=== PATIENT | male | born 1955 | race African-American/Black ===

== ENCOUNTER 2019-02-02 10:17 | Observation (INO) | payer OTHER ==
--- NOTE | 2019-02-02 10:46 | ER Document Report ---
ED General - General Stated Complaint: SYNCOPE Time Seen by Provider: 02/02/19 10:40 Primary Care Provider: STEFANIA LOZADA, ANASTACIA [ALLIED HEALTH PROFESSIONAL] - Follow up as needed Notes: 63-year-old male presents with syncope x2. History of pacer and ICD, history of hypertension but taken off his meds about a month ago because he was hypotensive but has not been diagnosed with hypertension frankly. This morning he bent over to get something and felt very dizzy. He almost fainted when he stood back up. He relaxed and got in the car to go to his primary care. At primary care clinic he was found to be hypotensive and was asked to drive to the ED. During the drive to the ED without prodrome he lost consciousness again. Hypotensive at triage. No chest pain shortness of breath belly pain ripping or tearing pain or vomiting, but had a loose stool this morning and has had nausea vomiting off and on for about a month. Past Medical History - Social History Smoking Status: Former Smoker Family History: None Review of Systems - Review of Systems Notes: REVIEW OF SYSTEMS GEN: Denies fever, chills, weight loss ENT: Denies sore throat, nasal discharge, ear pain EYES: Denies blurry vision, eye pain, discharge CV: syncope RESP: Denies cough, shortness of breath, wheezing GI: Denies abdominal pain, nausea, vomiting, diarrhea MSK: Denies joint pain/swelling, edema, SKIN: Denies rash, skin lesions LYMPH: Denies swollen glands/lymph nodes NEURO: Denies headache, focal weakness or numbness, dizziness PSYCH: Denies depression, suicidal or homicidal ideation PHYSICAL EXAMINATION General: Rigors, appears cold Head: Atraumatic, normocephalic ENT: Mouth normal, oropharynx moist, no exudates or tonsillar enlargement Eyes: Conjunctiva normal, pupils equal, lids normal Neck: No JVD, supple, no guarding CVS: Normal rate, regular rhythm, no murmurs Resp: No resp distress, equal and normal breath sounds bilaterally GI: Nondistended, soft, no tenderness to palpation, no rebound or guarding Ext: No deformities, no edema, normal range of motion in upper and lower ext Back: No CVA or midline TTP Skin: No rash, warm Lymphatic: No lymphadeopathy noted Neuro: Awake, alert. Face symmetric. GCS 15. Physical Exam - Vital signs Vitals: Resp Pulse Ox 21 H 98 02/02/19 10:37 02/02/19 10:37 Course - Re-evaluation Re-evalutation: 02/02/19 10:44 63-year-old male with cardiac problems presents with hypotension and syncope x2 the second time with no prodrome. Concerning for arrhythmia anemia or electrolyte abnormalities. Will hydrate. 02/02/19 13:23 Patient's blood pressure improved with 1 L of fluid. His labs including troponin are negative his pacemaker interrogation shows nothing in the last several days although he did have a nonsustained VT episode in December. I think his Coreg 25 twice a day is probably too much beta-blaise that may be what is causing today's events. Discussed with Dr. Dalila chakraborty to admit to [facility] telemetry. - Vital Signs Vital signs: Temp Pulse Resp BP Pulse Ox 98.6 F 18 109/65 99 02/02/19 10:49 02/02/19 12:43 02/02/19 12:43 02/02/19 12:43 - Laboratory Result Diagrams: 02/02/19 11:23 02/02/19 11:23 Laboratory results interpreted by me: 02/02/19 02/02/19 11:23 11:23 RBC 3.86 L Hgb 12.6 L Hct 37.0 L Monocytes % 14.0 H Sodium 136.4 L Glucose 112 H - Diagnostic Test Radiology reviewed: Image reviewed, Reports reviewed - EKG Interpretation by [place] EKG shows normal: Sinus rhythm Rate: Normal Rhythm: NSR Discharge - Discharge Clinical Impression: Syncope Qualifiers: Syncope type: unspecified Qualified Code(s): R55 - Syncope and collapse Condition: Fair Disposition: ADMITTED OBSERVATION Admitting Provider: Anupam (Hospitalist) Unit Admitted: Telemetry Referrals: STEFANIA LOZADA NP [ALLIED HEALTH PROFESSIONAL] - Follow up as needed
--- NOTE | 2019-02-02 11:18 | RADIOLOGY REPORT (SQ) ---
EXAM DESCRIPTION: CHEST SINGLE VIEW COMPLETED DATE/TIME: 02/02/2019 11:05 am REASON FOR STUDY: AICD COMPARISON: None. EXAM PARAMETERS: NUMBER OF VIEWS: One view. TECHNIQUE: Single frontal radiographic view of the chest acquired. RADIATION DOSE: NA LIMITATIONS: None. FINDINGS: LUNGS AND PLEURA: No opacities, masses or pneumothorax. No pleural effusion. MEDIASTINUM AND HILAR STRUCTURES: No masses. Contour normal. HEART AND VASCULAR STRUCTURES: Heart normal in size. Normal vasculature. BONES: No acute findings. HARDWARE: Left-sided pacer/defibrillator with leads overlying right atrium and right ventricle. Ther e is apparent discontinuity of 1 of the wires at the level of the subclavian vein. No priors availab le for comparison. OTHER: No other significant finding. IMPRESSION: Left-sided cardiac pacer/defibrillator with apparent discontinuity of one of the pacer w ires at the level of the subclavian vein. No priors available for comparison. No other evidence of acute cardiopulmonary process. TECHNICAL DOCUMENTATION: JOB ID: [id number] [employer]- All Rights Reserved Reading location - IP/workstation name: [email or web address]
[2019-02-02 12:13] LABS: ABSOLUTE LYMPHOCYTES (AUTO) 0.9 10^3/uL (0.5-4.7); ABSOLUTE MONOCYTES (AUTO) 0.6 10^3/uL (0.1-1.4); ABSOLUTE NEUT (AUTO) 2.9 10^3/uL (1.7-8.2); BASOPHILS % (AUTO) 0.6 % (0-2); EOSINOPHILS % (AUTO) 0.7 % (0-6); HEMOGLOBIN 12.6 g/dL (13.5-17.0); LYMPHOCYTES % (AUTO) 19.1 % (13-45); MEAN CORPUSCULAR HEMOGLOBIN 32.8 pg (27.0-33.4); MEAN CORPUSCULAR HGB CONC 34.1 g/dL (32.0-36.0); MEAN CORPUSCULAR VOLUME 96 fl (80-97); PLATELET COUNT 163 10^3/uL (150-450); RED BLOOD COUNT 3.86 10^6/uL (4.35-5.55); RED CELL DISTRIBUTION WIDTH 13.2 % (11.5-14.0); SEGMENTED NEUTROPHILS % (AUTO) 65.6 % (42-78); TOTAL CELLS COUNTED % (AUTO) 100 %; WHITE BLOOD COUNT 4.5 10^3/uL (4.0-10.5)
[2019-02-02 12:47] LABS: ANION GAP 10 (5-19); BLOOD UREA NITROGEN 7 mg/dL (7-20); CALCIUM 8.8 mg/dL (8.4-10.2); CARBON DIOXIDE 26 mmol/L (22-30); CHLORIDE 100 mmol/L (98-107); GLUCOSE 112 mg/dL (75-110); POTASSIUM 4.4 mmol/L (3.6-5.0); SODIUM 136.4 mmol/L (137-145)
--- NOTE | 2019-02-02 14:05 | PDOC H&P ---
History of Present Illness Admission Date/PCP: DENIS GUEVARA MD History of Present Illness: GIA TINOCO is a 63 year old black male patient with past medical history of hypertension, hyperlipidemia, diabetes mellitus, COPD, status post AICD placement, presented with chief complaint of lightheadedness and an episode of syncope. Patient reported that he has been traveling to [place] while his son is driving the car when he started to have lightheadedness. Patient found to be hypotensive with blood pressure of 61/40. En route to ER patient has an episode of syncope and incontinence of stool. After he was given a bolus of normal saline patient feels much better. When I seen patient is awake alert and oriented x4. Blood works are unremarkable. His pacemaker interrogation shows nothing in the last several days although he did have an nonsustained V. tach episode in December. His hypotension is most probably due to high-dose of beta- blockers. Patient denies any fever, chills, chest pain or palpitation. He endorses intermittent nausea and vomiting for the last several months. Past Medical History Cardiac Medical History: Reports: Hyperlipidema, Hypertension Pulmonary Medical History: Reports: Chronic Obstructive Pulmonary Disease (COPD) Endocrine Medical History: Reports: Diabetes Mellitus Type 2 Past Surgical History Past Surgical History: Reports: Appendectomy, Orthopedic Surgery Social History Smoking Status: Former Smoker - Advance Directive Resuscitation Status: Full Code Family History Family History: None Parental Family History Reviewed: Yes Children Family History Reviewed: Yes Sibling(s) Family History Reviewed.: Yes Review of Systems Constitutional: ABSENT: chills, fever(s), headache(s), weight gain, weight loss Eyes: ABSENT: visual disturbances Ears: ABSENT: hearing changes Cardiovascular: ABSENT: chest pain, dyspnea on exertion, edema, orthropnea, palpitations Respiratory: ABSENT: cough, hemoptysis Gastrointestinal: PRESENT: nausea, vomiting Genitourinary: ABSENT: dysuria, hematuria Musculoskeletal: ABSENT: joint swelling Integumentary: ABSENT: rash, wounds Neurological: PRESENT: dizziness Psychiatric: ABSENT: anxiety, depression, homidical ideation, suicidal ideation Endocrine: ABSENT: cold intolerance, heat intolerance, polydipsia, polyuria Hematologic/Lymphatic: ABSENT: easy bleeding, easy bruising Physical Exam Vital Signs: Temp Pulse Resp BP Pulse Ox 98.6 F 18 109/65 99 02/02/19 10:49 02/02/19 12:43 02/02/19 12:43 02/02/19 12:43 Intake & Output 02/01/19 02/02/19 02/03/19 06:59 06:59 06:59 Weight 70.76 kg General appearance: PRESENT: no acute distress Head exam: PRESENT: atraumatic, normocephalic Neck exam: ABSENT: carotid bruit, JVD, lymphadenopathy, thyromegaly Respiratory exam: PRESENT: clear to auscultation bonifacio. ABSENT: rales, rhonchi, wheezes Cardiovascular exam: PRESENT: RRR. ABSENT: diastolic murmur, rubs, systolic murmur Pulses: PRESENT: normal dorsalis pedis pul GI/Abdominal exam: PRESENT: normal bowel sounds, soft. ABSENT: distended, guarding, mass, organolmegaly, rebound, tenderness Neurological exam: PRESENT: alert, awake, oriented to time, oriented to situation Results Laboratory Results: 02/02/19 11:23 02/02/19 11:23 02/02/19 02/02/19 02/02/19 10:04 10:04 11:23 WBC Cancelled 4.5 RBC Cancelled 3.86 L Hgb Cancelled 12.6 L Hct Cancelled 37.0 L MCV Cancelled 96 MCH Cancelled 32.8 MCHC Cancelled 34.1 RDW Cancelled 13.2 Plt Count Cancelled 163 Seg Neutrophils % Cancelled 65.6 Lymphocytes % Cancelled 19.1 Monocytes % Cancelled 14.0 H Eosinophils % Cancelled 0.7 Basophils % Cancelled 0.6 Absolute Neutrophils Cancelled 2.9 Absolute Lymphocytes Cancelled 0.9 Absolute Monocytes Cancelled 0.6 Absolute Eosinophils Cancelled 0.0 Absolute Basophils Cancelled 0.0 Sodium Cancelled Potassium Cancelled Chloride Cancelled Carbon Dioxide Cancelled Anion Gap Cancelled BUN Cancelled Creatinine Cancelled Est GFR ( Amer) Cancelled Est GFR (Non-Af Amer) Cancelled Glucose Cancelled Calcium Cancelled 02/02/19 11:23 WBC RBC Hgb Hct MCV MCH MCHC RDW Plt Count Seg Neutrophils % Lymphocytes % Monocytes % Eosinophils % Basophils % Absolute Neutrophils Absolute Lymphocytes Absolute Monocytes Absolute Eosinophils Absolute Basophils Sodium 136.4 L Potassium 4.4 Chloride 100 Carbon Dioxide 26 Anion Gap 10 BUN 7 Creatinine 1.07 Est GFR ( Amer) > 60 Est GFR (Non-Af Amer) > 60 Glucose 112 H Calcium 8.8 02/02/19 02/02/19 10:04 11:23 Troponin I Cancelled < 0.012 Impressions: Chest X-Ray 02/02/19 10:41 IMPRESSION: Left-sided cardiac pacer/defibrillator with apparent discontinuity of one of the pacer wires at the level of the subclavian vein. No priors brenton ilable for comparison. No other evidence of acute cardiopulmonary process. Assessment and Plan - Diagnosis (1) Syncope Qualifiers: Encounter type: initial encounter Is this a current diagnosis for this admission?: Yes Plan: This is most probably due to orthostatic hypotension. It is precipitated by high-dose metoprolol. I will revise his blood pressure medications and adjust accordingly. (2) Hypertension Qualifiers: Hypertension type: essential hypertension Qualified Code(s): I10 - Essential (primary) hypertension Is this a current diagnosis for this admission?: Yes Plan: Patient is not hypotensive. We will hold his antihypertensive medications. (3) Type 2 diabetes mellitus Is this a current diagnosis for this admission?: Yes Plan: We will continue his home medication in the meantime we will put him on sliding scale. (4) COPD (chronic obstructive pulmonary disease) Qualifiers: Emphysema type: unspecified Is this a current diagnosis for this admission?: Yes Plan: I will put him on PRN bronchodilators. (5) Hyperlipidemia Is this a current diagnosis for this admission?: Yes Plan: Continue his home medications.
[2019-02-02] MEDS ORDERED: ONDANSETRON HCL INJ/PF 4 MG/2 ML SDV IV PRN (14:06)
[2019-02-02] MEDS ORDERED: ACETAMINOPHEN 325 MG TABLET PO PRN (14:06)
[2019-02-02] MEDS: ENOXAPARIN SODIUM INJ 40 MG/0.4 ML DISP.SYRIN SUBCUT SCH (15:32)
[2019-02-02] MEDS: NORMAL SALINE 1000 ML 1,000 ML IV PRN ×2 (15:32→23:48)
[2019-02-02] MEDS: DOCUSATE SODIUM 100 MG CAPSULE PO SCH (18:30)
--- NOTE | 2019-02-02 19:41 | EKG REPORT ---
SEVERITY:- OTHERWISE NORMAL ECG - SINUS RHYTHM LEFT AXIS DEVIATION MINIMAL ST ELEVATION, ANTEROLATERAL LEADS : NON DIAGNOSTIC : Confirmed by: Laurel Acosta MD 02-Feb-2019 19:40:32
[2019-02-02] MEDS: FAMOTIDINE 20 MG TABLET PO SCH (21:17)
[2019-02-03 07:22] LABS: ANION GAP 9 (5-19); BLOOD UREA NITROGEN 9 mg/dL (7-20); CALCIUM 8.1 mg/dL (8.4-10.2); CARBON DIOXIDE 24 mmol/L (22-30); CHLORIDE 105 mmol/L (98-107); GLUCOSE 86 mg/dL (75-110); POTASSIUM 3.5 mmol/L (3.6-5.0); SODIUM 137.6 mmol/L (137-145)
[2019-02-03 07:55] VITALS: BP 145/90
[2019-02-03] MEDS: FAMOTIDINE 20 MG TABLET PO SCH (09:07)
[2019-02-03] MEDS: ENOXAPARIN SODIUM INJ 40 MG/0.4 ML DISP.SYRIN SUBCUT SCH (09:09)
[2019-02-03] MEDS: DOCUSATE SODIUM 100 MG CAPSULE PO SCH (09:11)
--- NOTE | 2019-02-03 10:48 | PDOC DISCHARGE SUMMARY ---
General - Admit/Disc Date/PCP Admission Date/Primary Care Provider: 02/02/19 14:03 DENIS GUEVARA MD Discharge Date: 02/03/19 - Discharge Diagnosis (1) Syncope Is this a current diagnosis for this admission?: Yes (2) Hypertension Is this a current diagnosis for this admission?: Yes (3) Type 2 diabetes mellitus Is this a current diagnosis for this admission?: Yes (4) COPD (chronic obstructive pulmonary disease) Is this a current diagnosis for this admission?: Yes (5) Hyperlipidemia Is this a current diagnosis for this admission?: Yes - Additional Information Resuscitation Status: Full Code Home Medications: Carvedilol [Coreg 25 mg Tablet] 25 mg PO Q12 02/02/19 Ergocalciferol (Vitamin D2) [Drisdol 50,000 unit (1.25MG) Capsule] 50,000 unit PO MO 02/02/19 Lisinopril [Zestril] 10 mg PO DAILY 02/02/19 Metformin HCl [Glucophage XR 500 mg Tablet] 1,000 mg PO BID 02/02/19 Naproxen [Naprosyn] 500 mg PO BIDP PRN 02/02/19 Rosuvastatin Calcium [Crestor 20 mg Tablet] 20 mg PO QHS 02/02/19 Umeclidinium Brm/Vilanterol Tr [Anoro Ellipta 62.5-25 Mcg INH] 1 puff IH DAILY 02/02/19 History of Present Illness History of Present Illness: GIA TINOCO is a 63 year old black male patient with past medical history of hypertension, hyperlipidemia, diabetes mellitus, COPD, status post AICD placement, presented with chief complaint of lightheadedness and an episode of syncope. Patient reported that he has been traveling to [place] while his son is driving the car when he started to have lightheadedness. Patient found to be hypotensive with blood pressure of 61/40. En route to ER patient has an episode of syncope and incontinence of stool. After he was given a bolus of normal saline patient feels much better. When I seen patient is awake alert and oriented x4. Blood works are unremarkable. His pacemaker interrogation shows nothing in the last several days although he did have an nonsustained V. tach episode in December. His hypotension is most probably due to high-dose of beta- blockers. Patient denies any fever, chills, chest pain or palpitation. He endorses intermittent nausea and vomiting for the last several months. Hospital Course Hospital Course: GIA TINOCO is a 63 year old black male patient with past medical history of hypertension, hyperlipidemia, diabetes mellitus, COPD, status post AICD placement, presented with chief complaint of lightheadedness and an episode of syncope. Patient has been hydrated aggressively. His blood pressure medications has been revised. His blood pressure remained stable and patient is stable enough to go home today. Patient advised that to visit his primary care physician. Physical Exam Vital Signs: Temp Pulse Resp BP Pulse Ox 98.2 F 59 L 17 145/90 H 98 02/03/19 07:53 02/03/19 07:53 02/03/19 07:53 02/03/19 07:53 02/03/19 07:53 Intake & Output 02/02/19 02/03/19 02/04/19 06:59 06:59 06:59 Intake Total 1240 Balance 1240 Weight 70.7 kg General appearance: PRESENT: no acute distress, well-developed, well-nourished Head exam: PRESENT: atraumatic, normocephalic Eye exam: PRESENT: conjunctiva pink, EOMI, PERRLA. ABSENT: scleral icterus Ear exam: PRESENT: normal external ear exam Mouth exam: PRESENT: moist, tongue midline Neck exam: ABSENT: carotid bruit, JVD, lymphadenopathy, thyromegaly Respiratory exam: PRESENT: clear to auscultation bonifacio. ABSENT: rales, rhonchi, wheezes Cardiovascular exam: PRESENT: RRR. ABSENT: diastolic murmur, rubs, systolic murmur Pulses: PRESENT: normal dorsalis pedis pul Vascular exam: PRESENT: normal capillary refill GI/Abdominal exam: PRESENT: normal bowel sounds, soft. ABSENT: distended, guarding, mass, organolmegaly, rebound, tenderness Rectal exam: PRESENT: deferred Extremities exam: PRESENT: full ROM. ABSENT: calf tenderness, clubbing, pedal edema Neurological exam: PRESENT: alert, awake, oriented to person, oriented to place, oriented to time, oriented to situation, CN II-XII grossly intact. ABSENT: motor sensory deficit Psychiatric exam: PRESENT: appropriate affect, normal mood. ABSENT: homicidal ideation, suicidal ideation Skin exam: PRESENT: dry, intact, warm. ABSENT: cyanosis, rash Results Laboratory Results: 02/02/19 11:23 02/03/19 06:00 02/02/19 02/02/19 02/02/19 10:04 10:04 11:23 WBC Cancelled 4.5 RBC Cancelled 3.86 L Hgb Cancelled 12.6 L Hct Cancelled 37.0 L MCV Cancelled 96 MCH Cancelled 32.8 MCHC Cancelled 34.1 RDW Cancelled 13.2 Plt Count Cancelled 163 Seg Neutrophils % Cancelled 65.6 Lymphocytes % Cancelled 19.1 Monocytes % Cancelled 14.0 H Eosinophils % Cancelled 0.7 Basophils % Cancelled 0.6 Absolute Neutrophils Cancelled 2.9 Absolute Lymphocytes Cancelled 0.9 Absolute Monocytes Cancelled 0.6 Absolute Eosinophils Cancelled 0.0 Absolute Basophils Cancelled 0.0 Sodium Cancelled Potassium Cancelled Chloride Cancelled Carbon Dioxide Cancelled Anion Gap Cancelled BUN Cancelled Creatinine Cancelled Est GFR ( Amer) Cancelled Est GFR (Non-Af Amer) Cancelled Glucose Cancelled Calcium Cancelled 02/02/19 02/03/19 11:23 06:00 WBC RBC Hgb Hct MCV MCH MCHC RDW Plt Count Seg Neutrophils % Lymphocytes % Monocytes % Eosinophils % Basophils % Absolute Neutrophils Absolute Lymphocytes Absolute Monocytes Absolute Eosinophils Absolute Basophils Sodium 136.4 L 137.6 Potassium 4.4 3.5 L Chloride 100 105 Carbon Dioxide 26 24 Anion Gap 10 9 BUN 7 9 Creatinine 1.07 0.97 Est GFR ( Amer) > 60 > 60 Est GFR (Non-Af Amer) > 60 > 60 Glucose 112 H 86 Calcium 8.8 8.1 L 02/02/19 02/02/19 10:04 11:23 Troponin I Cancelled < 0.012 Impressions: Chest X-Ray 02/02/19 10:41 IMPRESSION: Left-sided cardiac pacer/defibrillator with apparent discontinuity of one of the pacer wires at the level of the subclavian vein. No priors availa ble for comparison. No other evidence of acute cardiopulmonary process. Qualifiers - * PATIENT BEING DISCHARGED WITH ANY OF THE FOLLOWING DIAGNOSIS: No Acute Heart Failure Is this a Heart Failure Patient?: No
== END 2019-02-03 13:14 | disposition home or self-care (01) ==
LOC: ER 10:17 → EH 14:03 → 4N 20:31
PROVIDERS: ADMIT Internal Medicine; ATTEND Internal Medicine
DX: R55 Syncope and collapse (principal); I10 Essential (primary) hypertension; E11.9 Type 2 diabetes mellitus without complications; J44.9 Chronic obstructive pulmonary disease, unspecified; E78.5 Hyperlipidemia, unspecified; Z79.899 Other long term (current) drug therapy; Z87.891 Personal history of nicotine dependence; Z95.810 Presence of automatic (implantable) cardiac defibrillator
CPT/HCPCS: 93005; 99285; 96372; 96360; 96361; 36415 ×2; 82962; 85025; 80048 ×2; 84484; 83036; 71045; 93010; G0378 ×3; J1650 ×2; J7030

== ENCOUNTER 2019-03-20 20:19 | Emergency (ER) | payer OTHER ==
--- NOTE | 2019-03-20 21:46 | RADIOLOGY REPORT (SQ) ---
EXAM DESCRIPTION: XR TIBIA FIBULA 2 VIEWS COMPLETED DATE/TME: 03/20/2019 21:12 CLINICAL HISTORY: 63 years, Male, dog bite COMPARISON: None. NUMBER OF VIEWS: 4 TECHNIQUE: 4 view right tibia fibula LIMITATIONS: None. FINDINGS: Negative for acute fracture or dislocation. Well-corticated ossific densities near both the medial and lateral malleoli consistent with sequelae of old trauma. Soft tissue injury along the medial proximal leg with no radiopaque foreign body. IMPRESSION: Proximal soft tissue injury. No acute osseous abnormality copyright 2010 [employer]- All Rights Reserved
[2019-03-21] MEDS ORDERED: LIDOCAINE 1%/EPINEPHRINE INJ 20 ML VIAL INJ ONE (00:11)
--- NOTE | 2019-03-21 00:16 | ER Document Report ---
ED General - General Chief Complaint: Dog Bite Stated Complaint: DOG BITE Time Seen by Provider: 03/21/19 00:06 Primary Care Provider: DENIS GUEVARA MD [Primary Care Provider] - Follow up in 3-5 days Notes: Patient is a 63-year-old male that presents to the emergency department for chief complaint of dog bite to the right leg. Patient reports that around 5 PM today he was breaking profile between his own dogs, and 1 of them bit him in the right leg, there is a [place], he states he is up-to-date with the rabies vaccinations, and the patient states that he personally is up-to-date with tetanus. He has some pain in his leg, he is more concerned about the deep laceration, he currently rates his pain is a 2 out of 10 and describes it as an aching sensation and somewhat throbbing in his right leg. Denies any other injuries, denies falling. Past Medical History: Diabetes mellitus, CHF, hypertension Past Surgical History: AICD placement Social History: Admits to occasional alcohol use, denies tobacco or illicit drug use. Family History: Reviewed and noncontributory for presenting illness Allergies: Reviewed, see documented allergy list. REVIEW OF SYSTEMS: Other than noted above, the 12 point review of systems was reviewed with the patient and were negative, all pertinent findings are included in the HPI. PHYSICAL EXAMINATION: Vital signs reviewed, nursing noted reviewed. GENERAL: Well-appearing, well-nourished and in no acute distress. HEAD: Atraumatic, normocephalic. EYES: Eyes appear normal, extraocular movements intact, sclera anicteric, conjunctiva are normal. ENT: nares patent, oropharynx clear without exudates. Moist mucous membranes. NECK: Normal range of motion, supple without lymphadenopathy LUNGS: Breath sounds clear to auscultation bilaterally and equal. No wheezes rales or rhonchi. HEART: Regular rate and rhythm without murmurs ABDOMEN: Soft, nontender, normoactive bowel sounds. No rebound, guarding, or rigidity. No masses appreciated. EXTREMITIES: The right lower extremity, has a 3 cm chevron shaped deep laceration, anteriorly of the right lower leg, there is a small superficial skin tear, more laterally. Neurovascular patient is intact distally, no other injuries noted, the rest the patient's extremity exam is grossly unremarkable. NEUROLOGICAL: No focal neurological deficits. Moves all extremities spontaneously Motor and sensory grossly intact on exam. PSYCH: Normal mood, normal affect. SKIN: Warm, Dry, normal turgor TRAVEL OUTSIDE OF THE [place] IN LAST 30 DAYS: No - Related Data Allergies/Adverse Reactions: No Known Allergies Allergy (Unverified 02/02/19 14:56) Past Medical History - Social History Smoking Status: Former Smoker Frequency of alcohol use: Rare Drug Abuse: None Family History: None Patient has suicidal ideation: No Patient has homicidal ideation: No - Past Medical History Cardiac Medical History: Reports: Hx Hypercholesterolemia, Hx Hypertension Pulmonary Medical History: Reports: Hx COPD Endocrine Medical History: Reports: Hx Diabetes Mellitus Type 2 Renal/ Medical History: Denies: Hx Peritoneal Dialysis Psychiatric Medical History: Denies: Hx Depression Past Surgical History: Reports: Hx Appendectomy, Hx Cardiac Surgery - Defibrillator placed, Hx Orthopedic Surgery Physical Exam - Vital signs Vitals: Temp Pulse Resp BP Pulse Ox 98.5 F 68 18 142/73 H 98 03/20/19 21:00 03/20/19 21:00 03/20/19 21:00 03/20/19 21:00 03/20/19 21:00 Course - Re-evaluation Re-evalutation: Patient seen and examined vital signs reviewed. Patient was evaluated and treated as appropriate for the patient's presenting symptoms and complaint, with consideration of any critical or life threatening conditions that may be associated with their obtained history and exam as noted above. Patient was treated with suture repair as described, patient's wound was gaping, and was loosely approximated, irrigated extensively prior to approximating the laceration. Patient reported being up-to-date with his tetanus vaccination, given a dose of Augmentin. The patient was re-evaluated and was stable, tolerated procedure well Evaluation was most consistent with dog bite, with deep laceration, patient will be prescribed Augmentin, and advised to follow-up in 8 to 10 days to have his sutures removed. Plan of care was discussed with the patient at this point, after careful consideration I feel that that patient can be discharged from the emergency department, the patient was educated treatments and reasons to return to the emergency department based on their presumed diagnosis as noted above, they were advised to followup with a primary care physician in 2-3 days. Patient was agreeable to plan of care. *Note is created using voice recognition software and may contain spelling, syntax or grammatical errors. Tibia/Fibula X-Ray 03/20/19 21:12 IMPRESSION: Proximal soft tissue injury. No acute osseous abnormality copyright 2011 [employer]- All Rights Reserved - Vital Signs Vital signs: Temp Pulse Resp BP Pulse Ox 98.4 F 67 16 143/74 H 100 03/21/19 01:22 03/21/19 01:22 03/21/19 01:22 03/21/19 01:22 03/21/19 01:22 Procedures - Laceration/Wound Repair Right Lower Leg Wound length (cm): 3 Wound's Depth, Shape: Other - into subcuteous tissues Laceration pre-procedure: Sterile PPE donned, Sterile drapes applied, Shur-Clens applied Anesthetic type: 1% Lidocaine w/epi Volume Anesthetic (mLs): 3 Wound explored: Clean Irrigated w/ Saline (mLs): 250 Wound Repaired With: Sutures Suture Size/Type: 4:0, Nylon Number of Sutures: 3 Layer Closure?: No Post-procedure wound care: Sterile dressing applied Complications: No Discharge - Discharge Clinical Impression: Leg laceration Qualifiers: Encounter type: initial encounter Laterality: right Qualified Code(s): S81.811A - Laceration without foreign body, right lower leg, initial encounter Dog bite Qualifiers: Encounter type: initial encounter Qualified Code(s): W54.0XXA - Bitten by dog, initial encounter Condition: Stable Disposition: HOME, SELF-CARE Instructions: Laceration Care ([facility]), Prophylactic Antibiotic ([facility]) Additional Instructions: Please keep your wound clean and dry, you may wash with soap and water then pat dry, may use a small amount of blood, but is designed to be open, if you notice signs of infection such as pus drainage, redness streaking up your leg, please return to the emergency department immediately, please take the prescribed antibiotic, and return in 8 to 10 days to have your sutures removed. Prescriptions: Amox Tr/Potassium Clavulanate [Augmentin 875-125 Tablet] 1 tab PO BID 7 Days #14 tablet Referrals: DENIS GUEVARA MD [Primary Care Provider] - Follow up in 3-5 days
[2019-03-21] MEDS ORDERED: AMOXICILLIN TR/POT CLAVULANATE 500-125 MG TAB PO ONE (01:14)
[2019-03-21 01:28] VITALS: BP 143/74
== END 2019-03-21 01:27 | disposition home or self-care (01) ==
LOC: ER 20:19
DX: S81.851A Open bite, right lower leg, initial encounter (principal); W54.0XXA Bitten by dog, initial encounter; E78.00 Pure hypercholesterolemia, unspecified; I10 Essential (primary) hypertension; J44.9 Chronic obstructive pulmonary disease, unspecified; E11.9 Type 2 diabetes mellitus without complications; Z95.810 Presence of automatic (implantable) cardiac defibrillator
CPT/HCPCS: 99283; 82962; 73590; 12002; J3490

== ENCOUNTER 2020-09-19 18:59 | Emergency (ER) | payer OTHER, MEDICARE ==
--- NOTE | 2020-09-19 20:32 | ER Document Report ---
ED Syncope and Near Syncope - General Chief Complaint: Altered Mental Status Stated Complaint: POSSIBLE SYNCOPE Time Seen by Provider: 09/19/20 20:13 Primary Care Provider: DENIS GUEVARA MD [Primary Care Provider] - Follow up as needed TRAVEL OUTSIDE OF THE [place] IN LAST 30 DAYS: No - HPI Notes: Patient is a 65-year-old male with a history of COPD, DM, HTN, and pacemaker who presents with lightheadedness for the past week. Patient was found on the floor earlier this evening by his son. He was down for an unknown amount of time. Patient states that he felt lightheaded and had to lay down on the ground but denies any syncope or fall. He states his symptoms are exacerbated when he stands up. He denies hitting his head or any loss of consciousness. Patient reports a decreased appetite for the past week. Patient denies chest pain, shortness of breath, headache, blurred vision, abdominal pain, nausea, vomiting, and diarrhea. - Related Data Allergies/Adverse Reactions: No Known Allergies Allergy (Unverified 02/02/19 14:56) Past Medical History - General Information source: Patient - Social History Smoking Status: Former Smoker Frequency of alcohol use: Occasional Drug Abuse: None Family History: None - Past Medical History Cardiac Medical History: Reports: Hx Heart Attack, Hx Hypercholesterolemia, Hx Hypertension Pulmonary Medical History: Reports: Hx COPD Endocrine Medical History: Reports: Hx Diabetes Mellitus Type 2 Renal/ Medical History: Denies: Hx Peritoneal Dialysis Psychiatric Medical History: Denies: Hx Depression Past Surgical History: Reports: Hx Appendectomy, Hx Cardiac Surgery - Defibrillator placed, Hx Orthopedic Surgery Review of Systems - Review of Systems Constitutional: No symptoms reported EENT: No symptoms reported Cardiovascular: See HPI Respiratory: No symptoms reported Gastrointestinal: No symptoms reported Genitourinary: No symptoms reported Male Genitourinary: No symptoms reported Musculoskeletal: No symptoms reported Skin: No symptoms reported Hematologic/Lymphatic: No symptoms reported Neurological/Psychological: No symptoms reported Physical Exam - Vital signs Vitals: Resp Pulse Ox 18 99 09/19/20 19:02 09/19/20 19:02 - Notes Notes: PHYSICAL EXAMINATION: VITALS: Vitals reviewed and within normal limits. GENERAL: Well-appearing, well-nourished and in no acute distress. HEAD: Atraumatic, normocephalic. EYES: Pupils equal, round, and reactive to light, extraocular movements intact, sclera anicteric, conjunctiva are normal. ENT: Nares patent. Moist mucous membranes. Oropharynx clear without exudates. NECK: Normal range of motion, supple without lymphadenopathy. LUNGS: Breath sounds clear to auscultation bilaterally and equal. No wheezes, rales, or rhonchi. HEART: Regular, rate, and rhythm without murmurs. ABDOMEN: Soft, nontender, normoactive bowel sounds. No guarding, no rebound. No masses appreciated. EXTREMITIES: Normal range of motion, no pitting or edema. No cyanosis. NEUROLOGICAL: No focal neurological deficits. Moves all extremities spontaneously and on command. Face symmetric. Finger to nose testing normal. Pronator drift normal. PSYCH: Normal mood, normal affect. SKIN: Warm, Dry, normal turgor, no rashes or lesions noted. Course - Re-evaluation Re-evalutation: Patient is a 65-year-old male with history of COPD, DM, HTN, and pacemaker who presents with lightheadedness for the past week. Patient was found down on the ground by his son, the patient denies syncope and states that he became lightheaded and had to lay down when his son walked in. Patient reports a decreased appetite and son states patient has been drinking beer but not eating much. Vital signs are within normal limits. Physical exam is unremarkable with no concerning findings. CBC shows a mildly low hemoglobin of 11.4. CMP shows a mildly low sodium of 133.9. UA shows elevated protein of 30, elevated ketones of 80, with a specific gravity of 1.027. UDS is positive for cocaine and marijuana. CT of the head is negative. Chest x-ray is negative as well. Patient given 1 L of IVF here in the ED. Based on presentation and work-up, patient's symptoms are consistent with dehydration. 09/20/20 00:06 Orthostatics done: supine - BP 137/79, HR 83, O2 Sat 100%, sitting - BP 140/87, HR 94, O2 Sat 100%, standing - BP 132/69, HR 106, O2 Sat 100%. Per PCT, patient unsteady upon standing. 2nd liter of fluids ordered. 09/20/20 01:40 Patient's blood pressure continues to improve after 2 L of fluid. We will reassess the patient's stability while standing to ensure he is safe for discharge home. 09/20/20 01:48 PCT helped the patient stand once more and he was much more s table after the 2nd liter of fluids. Patient will be discharged home with strict instructions to increase oral intake. Return precautions and follow up instructions. Patient understands and is in agreement with the plan. - Vital Signs Vital signs: Temp Pulse Resp BP Pulse Ox 98.7 F 79 19 132/69 H 100 09/20/20 02:56 09/20/20 02:56 09/20/20 02:56 09/19/20 22:43 09/20/20 02:56 - Laboratory Results Result Diagrams: 09/19/20 20:29 09/19/20 20:29 Laboratory Results Interpreted: 09/19/20 09/19/20 09/19/20 20:29 20:29 20:56 RBC 3.47 L Hgb 11.4 L Hct 32.8 L Sodium 133.9 L Creatine Kinase 43 L Albumin 3.2 L Urine Protein 30 H Urine Ketones 80 H Urine Urobilinogen 2.0 H Critical Laboratory Results Reviewed: No Critical Results - Radiology Results Critical Radiology Results Reviewed: No Critical Results Discharge - Discharge Clinical Impression: Lightheadedness, Dehydration Condition: Stable Disposition: HOME, SELF-CARE Additional Instructions: Please be sure to drink plenty of fluids/eat food and limit your alcohol/beer intake. Follow up with your primary care provider in the next coming week. Please return to the emergency department if you pass out, developed diffuse muscle cramping, have persistent vomiting, or have any other symptoms that are worrisome to you. Referrals: DENIS GUEVARA MD [Primary Care Provider] - Follow up as needed
[2020-09-19 21:21] LABS: ABSOLUTE EOSINOPHILS # (AUTO) 0.1 10^3/uL (0.0-0.6); ABSOLUTE LYMPHOCYTES (AUTO) 1.1 10^3/uL (0.5-4.7); ABSOLUTE MONOCYTES (AUTO) 0.5 10^3/uL (0.1-1.4); ABSOLUTE NEUT (AUTO) 4.7 10^3/uL (1.7-8.2); BASOPHILS % (AUTO) 0.6 % (0-2); HEMATOCRIT 32.8 % (37.9-51.0); HEMOGLOBIN 11.4 g/dL (13.5-17.0); LYMPHOCYTES % (AUTO) 17.1 % (13-45); MEAN CORPUSCULAR HEMOGLOBIN 32.7 pg (27.0-33.4); MEAN CORPUSCULAR HGB CONC 34.6 g/dL (32.0-36.0); MEAN CORPUSCULAR VOLUME 95 fl (80-97); MONOCYTES % (AUTO) 8.1 % (3-13); PLATELET COUNT 169 10^3/uL (150-450); RED BLOOD COUNT 3.47 10^6/uL (4.35-5.55); SEGMENTED NEUTROPHILS % (AUTO) 73.2 % (42-78); TOTAL CELLS COUNTED % (AUTO) 100 %; WHITE BLOOD COUNT 6.4 10^3/uL (4.0-10.5)
[2020-09-19 21:43] LABS: ALBUMIN 3.2 g/dL (3.5-5.0); ALCOHOL 18 mg/dL (NONE DETECTED); ALKALINE PHOSPHATASE 68 U/L (38-126); ANION GAP 13 (5-19); ASPARTATE AMINO TRANSFERASE 42 U/L (17-59); BILIRUBIN,DIRECT 0.3 mg/dL (0.0-0.4); BILIRUBIN,TOTAL 0.7 mg/dL (0.2-1.3); BLOOD UREA NITROGEN 10 mg/dL (7-20); CALCIUM 8.7 mg/dL (8.4-10.2); CARBON DIOXIDE 23 mmol/L (22-30); CHLORIDE 98 mmol/L (98-107); CREATINE KINASE 43 U/L (55-170); GLUCOSE 105 mg/dL (75-110); POTASSIUM 4.8 mmol/L (3.6-5.0); TOTAL PROTEIN 6.6 g/dL (6.3-8.2)
--- NOTE | 2020-09-19 21:47 | RADIOLOGY REPORT (SQ) ---
EXAM DESCRIPTION: XR CHEST 1 VIEW COMPLETED DATE/TME: 09/19/2020 21:22 CLINICAL HISTORY: 65 years, Male, altered mental status COMPARISON: 02/02/2019 NUMBER OF VIEWS: One TECHNIQUE: AP view the chest LIMITATIONS: None. FINDINGS: The lungs are clear. Heart is normal in size. No pneumothorax or pleural effusion. Left chest wall pacemaker. Bones are unremarkable. IMPRESSION: No acute cardiopulmonary abnormality copyright 2010 [employer]- All Rights Reserved
[2020-09-19 21:55] LABS: APPEARANCE,URINE CLEAR; BILIRUBIN,URINE NEGATIVE (NEGATIVE); COLOR,URINE YELLOW; GLUCOSE, URINE NEGATIVE (NEGATIVE); KETONES,URINE 80 mg/dL (NEGATIVE); LEUKOCYTE ESTERASE,URINE NEGATIVE (NEGATIVE); NITRITE,URINE NEGATIVE (NEGATIVE); PROTEIN,URINE 30 mg/dL (NEGATIVE); URINE SPECIFIC GRAVITY 1.027
[2020-09-19 22:11] LABS: URINE AMPHETAMINES SCREEN NEGATIVE; URINE BARBITURATES SCREEN NEGATIVE; URINE BENZODIAZEPINES SCREEN NEGATIVE; URINE METHADONE SCREEN NEGATIVE; URINE PHENCYCLIDINE SCREEN NEGATIVE
[2020-09-19 22:12] LABS: URINE COCAINE SCREEN UNCONFIRMED POSITIVE; URINE MARIJUANA (THC) SCREEN UNCONFIRMED POSITIVE
--- NOTE | 2020-09-19 22:16 | RADIOLOGY REPORT (SQ) ---
EXAM DESCRIPTION: CT HEAD WITHOUT IV CONTRAST COMPLETED DATE/TME: 09/19/2020 21:59 CLINICAL HISTORY: 65 years, Male, altered mental status COMPARISON: None. TECHNIQUE: 199 Images stored on PACS. All CT scanners at this facility use dose modulation, iterative reconstruction, and/or weight based dosing when appropriate to reduce radiation dose to as low as reasonably achievable (ALARA). [facility]: Dose Right [facility]: CareDose [facility]: Dose Right [facility]: Teradose 4D [facility]: [employer] LIMITATIONS: None. FINDINGS: The globes are intact. The paranasal sinuses and mastoid air cells are well aerated. No displaced or depressed skull fracture. No acute intracranial hemorrhage. CT is limited for evaluation of acute infarct. No CT evidence for large or territorial acute infarct. No mass or midline shift. Craniotomy defects in the right and left paramedian occipital regions. Mild diffuse atrophy. IMPRESSION: No acute intracranial abnormality TECHNICAL DOCUMENTATION: Quality ID # 436: Final reports with documentation of one or more dose reduction techniques (e.g., Automated exposure control, adjustment of the mA and/or kV according to patient size, use of iterative reconstruction technique) copyright 2010 [employer]- All Rights Reserved
[2020-09-20] MEDS ORDERED: NORMAL SALINE 1000 ML 1,000 ML IV ONE (00:04)
[2020-09-20 00:09] VITALS: BP 132/69
--- NOTE | 2020-09-20 09:56 | EKG REPORT ---
SEVERITY:- OTHERWISE NORMAL ECG - SINUS RHYTHM LEFT AXIS DEVIATION : Confirmed by: Prosper Pisano MD 20-Sep-2020 09:55:19
== END 2020-09-20 02:58 | disposition home or self-care (01) ==
LOC: ER 18:59
DX: E86.0 Dehydration (principal); R42 Dizziness and giddiness; R41.82 Altered mental status, unspecified; J44.9 Chronic obstructive pulmonary disease, unspecified; E11.9 Type 2 diabetes mellitus without complications; I10 Essential (primary) hypertension; E78.00 Pure hypercholesterolemia, unspecified; Z95.0 Presence of cardiac pacemaker; I25.2 Old myocardial infarction
CPT/HCPCS: 93005; 99285; 96360; 36415; 80307 ×2; 82550; 85025; 80053; 81001; 84484; 71045; 70450; 93010; J7030

== ENCOUNTER 2020-10-02 15:26 | Observation (INO) | payer OTHER, MEDICARE ==
--- NOTE | 2020-10-02 17:54 | ER Document Report ---
ED Medical Screen (RME) - General Chief Complaint: Weakness Stated Complaint: PASSING OUT Time Seen by Provider: 10/02/20 17:44 Primary Care Provider: DENIS GUEVARA MD [Primary Care Provider] - Follow up as needed Mode of Arrival: Wheelchair Information source: Relative Notes: HPI; 65-year-old male was brought to emergency room by family with concerns for worsening confusion that has been getting progressively worse for the past 3 weeks. States he did have a fall at home yesterday and hitting his head on the floor. Unwitnessed fall unknown loss of consciousness. States has been a heavy alcohol user for 50 years quit 10 days ago after being told by his primary care physician that he needed to stop drinking. No previous history of dementia or Alzheimer's. No nausea, no vomiting. PE: Patient is alert oriented to name only. Patient offers no complaints. Lungs: Clear to auscultation without rales, rhonchi, wheezes. Heart: Regular rate rhythm without murmurs, rubs, gallops. I have greeted and performed a rapid initial assessment of this patient. A comprehensive ED assessment and evaluation of the patient, analysis of test results and completion of the medical decision making process will be conducted by additional ED providers. I have specifically instructed the patient or family members with the patient to immediately return to any nursing staff should anything change in the patient's condition or with their chief complaint. TRAVEL OUTSIDE OF THE [place] IN LAST 30 DAYS: No - Related Data Allergies/Adverse Reactions: Penicillins Allergy (Verified 10/02/20 17:41) Past Medical History - Past Medical History Cardiac Medical History: Reports: Hx Heart Attack, Hx Hypercholesterolemia, Hx Hypertension Pulmonary Medical History: Reports: Hx COPD Endocrine Medical History: Reports: Hx Diabetes Mellitus Type 2 Renal/ Medical History: Denies: Hx Peritoneal Dialysis Psychiatric Medical History: Denies: Hx Depression Past Surgical History: Reports: Hx Appendectomy, Hx Cardiac Surgery - Defibrillator placed, Hx Orthopedic Surgery Physical Exam - Vital signs Vitals: Temp Pulse Resp BP Pulse Ox 97.6 F 70 16 109/79 98 10/02/20 15:33 10/02/20 15:33 10/02/20 15:33 10/02/20 15:33 10/02/20 15:33 Course - Vital Signs Vital signs: Temp Pulse Resp BP Pulse Ox 97.6 F 70 16 109/79 98 10/02/20 15:33 10/02/20 15:33 10/02/20 15:33 10/02/20 15:33 10/02/20 15:33 Doctor's Discharge - Discharge Referrals: DENIS GUEVARA MD [Primary Care Provider] - Follow up as needed
--- NOTE | 2020-10-02 18:35 | RADIOLOGY REPORT (SQ) ---
EXAM DESCRIPTION: CT HEAD WITHOUT IMAGES COMPLETED DATE/TIME: 10/02/2020 6:25 pm REASON FOR STUDY: fall/head injury COMPARISON: 09/19/2020 TECHNIQUE: Axial images acquired through the brain without intravenous contrast. Images reviewed wi th bone, brain and subdural windows. Additional sagittal and coronal reconstructions were generated. Images stored on PACS. All CT scanners at this facility use dose modulation, iterative reconstruction, and/or weight based d osing when appropriate to reduce radiation dose to as low as reasonably achievable (ALARA). [facility]: Dose Right [facility]: CareDose [facility]: Dose Right [facility]: Teradose 4D [facility]: Smart [id number] RADIATION DOSE: CT Rad equipment meets quality standard of care and radiation dose reduction techniq ues were employed. CTDIvol: 48.8 mGy. DLP: 909 mGy-cm. mGy. LIMITATIONS: None. FINDINGS: VENTRICLES: Prominent ventricles secondary to involutional atrophy. CEREBRUM: Cortical atrophy. No masses. No hemorrhage. No midline shift. No evidence for acute inf arction. Areas of low density in the white matter most likely chronic small vessel ischemic changes. CEREBELLUM: No masses. No hemorrhage. No alteration of density. No evidence for acute infarction. EXTRAAXIAL SPACES: No fluid collections. No masses. ORBITS AND GLOBE: No intra- or extraconal masses. Normal contour of globe without masses. CALVARIUM: Craniotomy defects are seen in the parietal region on each side of midline. PARANASAL SINUSES: No fluid or mucosal thickening. SOFT TISSUES: No mass or hematoma. OTHER: No other significant finding. IMPRESSION: Involutional changes with chronic microvascular ischemia. No acute intracranial imaging findings. EVIDENCE OF ACUTE STROKE: NO. COMMENT: Quality ID # 436: Final reports with documentation of one or more dose reduction techniques (e.g., Automated exposure control, adjustment of the mA and/or kV according to patient size, use of iterative reconstruction technique) TECHNICAL DOCUMENTATION: JOB ID: [id number] 2010 [employer]- All Rights Reserved Reading location - IP/workstation name: [email or web address]
--- NOTE | 2020-10-02 18:37 | RADIOLOGY REPORT (SQ) ---
EXAM DESCRIPTION: CT CERVICAL SPINE WITHOUT IMAGES COMPLETED DATE/TIME: 10/02/2020 6:25 pm REASON FOR STUDY: fall injury COMPARISON: None. TECHNIQUE: Axial images acquired through the cervical spine without intravenous contrast. Images re viewed with lung, soft tissue and bone windows. Reconstructed coronal and sagittal MPR images review ed. Images stored on PACS. All CT scanners at this facility use dose modulation, iterative reconstruction, and/or weight based d osing when appropriate to reduce radiation dose to as low as reasonably achievable (ALARA). [facility]: Dose Right [facility]: CareDose [facility]: Dose Right [facility]: Teradose 4D [facility]: Smart [employer]zer RADIATION DOSE: CT Rad equipment meets quality standard of care and radiation dose reduction techniq ues were employed. CTDIvol: 17.4 mGy. DLP: 430 mGy-cm. mGy. LIMITATIONS: None. FINDINGS: ALIGNMENT: Anatomic. MINERALIZATION: Normal. VERTEBRAL BODIES: No fractures or dislocation. DISCS: Disc spaces are narrowed from C5-C7 with marginal osteophytes. FACETS, LATERAL MASSES, POSTERIOR ELEMENTS: No fractures. No dislocation. No acute findings. HARDWARE: None in the spine. VISUALIZED RIBS: No fractures. LUNG APICES AND SOFT TISSUES: No significant or acute findings. OTHER: No other significant finding. IMPRESSION: Degenerative disc disease and spondylosis. No acute findings. TECHNICAL DOCUMENTATION: JOB ID: [id number] Quality ID # 436: Final reports with documentation of one or more dose reduction techniques (e.g., Au tomated exposure control, adjustment of the mA and/or kV according to patient size, use of iterative reconstruction technique) 2010 [employer]- All Rights Reserved Reading location - IP/workstation name: [email or web address]
[2020-10-02 19:59] LABS: ABSOLUTE EOSINOPHILS # (AUTO) 0.2 10^3/uL (0.0-0.6); ABSOLUTE LYMPHOCYTES (AUTO) 1.7 10^3/uL (0.5-4.7); ABSOLUTE MONOCYTES (AUTO) 0.7 10^3/uL (0.1-1.4); ABSOLUTE NEUT (AUTO) 3.8 10^3/uL (1.7-8.2); ALBUMIN 3.6 g/dL (3.5-5.0); ALKALINE PHOSPHATASE 92 U/L (38-126); ANION GAP 6 (5-19); ASPARTATE AMINO TRANSFERASE 33 U/L (17-59); BASOPHILS % (AUTO) 0.8 % (0-2); BILIRUBIN,DIRECT 0.2 mg/dL (0.0-0.4); BILIRUBIN,TOTAL 0.6 mg/dL (0.2-1.3); BLOOD UREA NITROGEN 14 mg/dL (7-20); CALCIUM 9.6 mg/dL (8.4-10.2); CARBON DIOXIDE 29 mmol/L (22-30); CHLORIDE 101 mmol/L (98-107); EOSINOPHILS % (AUTO) 2.5 % (0-6); GLUCOSE 120 mg/dL (75-110); HEMATOCRIT 36.3 % (37.9-51.0); HEMOGLOBIN 12.1 g/dL (13.5-17.0); LYMPHOCYTES % (AUTO) 26.7 % (13-45); MEAN CORPUSCULAR HEMOGLOBIN 31.7 pg (27.0-33.4); MEAN CORPUSCULAR HGB CONC 33.5 g/dL (32.0-36.0); MEAN CORPUSCULAR VOLUME 95 fl (80-97); PLATELET COUNT 221 10^3/uL (150-450); POTASSIUM 4.9 mmol/L (3.6-5.0); RED BLOOD COUNT 3.84 10^6/uL (4.35-5.55); RED CELL DISTRIBUTION WIDTH 13.9 % (11.5-14.0); TOTAL CELLS COUNTED % (AUTO) 100 %; TOTAL PROTEIN 7.2 g/dL (6.3-8.2); WHITE BLOOD COUNT 6.4 10^3/uL (4.0-10.5)
[2020-10-02 20:04] LABS: ACETAMINOPHEN < 10 ug/mL (10-30); ALCOHOL < 10 mg/dL (NONE DETECTED); SALICYLATE < 1.0 mg/dL (2.0-20.0)
--- NOTE | 2020-10-02 21:19 | ER Document Report ---
Doctor's Note Notes: 10/02/20 21:18 Was notified by patient greater that family had questions about test results and if they needed to continue to stay. Counseled family that he still needs a full evaluation by a provider for full evaluation. Did discuss leaving AMA and the risks of leaving AMA. Son has decided at this point that they would like to stay and wait to be seen by a provider in the past.
--- NOTE | 2020-10-03 03:51 | ER Document Report ---
ED General - General Chief Complaint: Weakness Stated Complaint: PASSING OUT Time Seen by Provider: 10/02/20 17:44 Mode of Arrival: Wheelchair TRAVEL OUTSIDE OF THE [place] IN LAST 30 DAYS: No - HPI Notes: Patient is a 65-year-old male who presents with weakness and syncope. Patient is here with his son. Patient's son states that for the past 1 month, he has had increased confusion. He is not recognizing his dog or family members. He has not been taking his medications. Patient was here 2 weeks ago after a syncopal event. He was given fluids and discharged. Son states that today patient had another likely syncopal event today and collapsed in the bathroom. He states that this was not witnessed. Patient does not remember the event. EMS was called and he was brought to the hospital. Patient was a frequent alcohol drinker. He drinks several beers daily. Patient stopped drinking alcohol about 1.5 weeks ago. Patient has never been formally diagnosed with dementia. He has not had an MRI or work-up of the episodes of syncope. Patient is currently denying any complaints. - Related Data Allergies/Adverse Reactions: Penicillins Allergy (Verified 10/02/20 17:41) Past Medical History - General Information source: Patient, Relative - Social History Smoking Status: Current Some Day Smoker Family History: None Patient has homicidal ideation: No - Past Medical History Cardiac Medical History: Reports: Hx Heart Attack, Hx Hypercholesterolemia, Hx Hypertension Pulmonary Medical History: Reports: Hx COPD Endocrine Medical History: Reports: Hx Diabetes Mellitus Type 2 Renal/ Medical History: Denies: Hx Peritoneal Dialysis Psychiatric Medical History: Denies: Hx Depression Past Surgical History: Reports: Hx Appendectomy, Hx Cardiac Surgery - Defibrillator placed, Hx Orthopedic Surgery Review of Systems - Review of Systems Notes: CONSTITUTIONAL: No fever. Positive for fatigue. SKIN: No rash. HENT: No congestion, ear pain, or sore throat. CARDIOVASCULAR: No chest pain or edema. RESPIRATORY: No cough, shortness of breath, congestion, or wheezing. GASTROINTESTINAL: No abdominal pain, nausea, vomiting, or diarrhea. MUSCULOSKELETAL: No joint pain or swelling. NEUROLOGIC: No seizures. No headache, focal weakness or sensory changes. Positive for syncope. HEMATOLOGIC: No unusual bruising or bleeding. PSYCHIATRIC: No depression or anxiety. Physical Exam - Vital signs Vitals: Temp Pulse Resp BP Pulse Ox 97.6 F 70 16 109/79 98 01/06/21 15:33 10/02/20 15:33 10/02/20 15:33 10/02/20 15:33 10/02/20 15:33 - General General appearance: Appears well In distress: None Notes: VITAL SIGNS: Within normal limits. GENERAL: No acute distress, non-toxic appearance. Sleeping but easily arousable. HEAD: Normal with no signs of head trauma. EYES: Conjunctiva normal, no discharge. EARS: Hearing grossly intact. NECK: Normal range of motion, no tenderness, supple, no lymphadenopathy, No adenopathy, no JVD. CHEST: Clear breath sounds bilaterally. No wheezes, rales, or rhonchi. CARDIAC: Regular rate and rhythm. S1 and S2, without murmurs, gallops, or rubs. VASCULAR: No Edema. Peripheral pulses normal and equal in all extremities. ABDOMEN: Normal and soft with no tenderness, no masses or pulsatile masses. LYMPATHTIC: No lymphadenopathy noted. MUSCULOSKELETAL: Good range of motion of all major joints. Extremities without clubbing, cyanosis or edema. NEUROLOGICAL: Alert and oriented x 3. No focal sensory or strength deficits. Speech normal. Follows commands appropriately. PSYCHIATRIC: Normal Affect, judgement and mood. SKIN: Normal appearance with no rashes or lesions. Course - Re-evaluation Re-evalutation: 10/03/20 03:51 Patient has had several episodes of syncope or falling and weakness. He has never been formally worked up for this. I will obtain orthostatics, troponin, EKG. I will have his defibrillator interrogated. His imaging is unremarkable. I discussed with the hospitalist as he is been here twice for this occurrence. He has not had an MRI or an echocardiogram. I am unsure of the cause of his weakness and syncope. Patient will be admitted for observation and further work-up. 10/03/20 07:03 10/03/20 07:05 - Vital Signs Vital signs: Temp Pulse Resp BP Pulse Ox 97.6 F 70 18 150/83 H 98 10/02/20 15:33 10/03/20 03:38 10/02/20 21:15 10/03/20 03:38 10/02/20 21:15 - Laboratory Results Result Diagrams: 10/02/20 19:08 10/02/20 19:08 Laboratory Results Interpreted: 10/02/20 10/02/20 19:08 19:08 RBC 3.84 L Hgb 12.1 L Hct 36.3 L Sodium 136.3 L Glucose 120 H Salicylates < 1.0 L Acetaminophen < 10 L Critical Laboratory Results Reviewed: No Critical Results - Radiology Results Critical Radiology Results Reviewed: No Critical Results - EKG Interpretation by Me EKG shows normal: Sinus rhythm Rate: Normal Rhythm: NSR When compared to previous EKG there are: No significant change Discharge - Discharge Clinical Impression: Weakness Altered mental status Qualifiers: Altered mental status type: unspecified Qualified Code(s): R41.82 - Altered mental status, unspecified Fall Qualifiers: Encounter type: initial encounter Qualified Code(s): W19.XXXA - Unspecified fall, initial encounter Condition: Stable Disposition: ADMITTED OBSERVATION Admitting Provider: Ruslan (Hospitalist) Unit Admitted: Telemetry
[2020-10-03] MEDS ORDERED: NORMAL SALINE 1000 ML 1,000 ML IV ONE (03:52)
[2020-10-03] MEDS ORDERED: RINGERS SOLUTION,LACTATED 1,000 ML IV PRN (06:05)
[2020-10-03] MEDS ORDERED: ONDANSETRON 4 MG TAB.RAPDIS PO PRN (06:05)
[2020-10-03] MEDS ORDERED: ONDANSETRON HCL INJ/PF 4 MG/2 ML SDV IV PRN (06:05)
[2020-10-03] MEDS ORDERED: ACETAMINOPHEN 325 MG TABLET PO PRN (06:05)
--- NOTE | 2020-10-03 06:30 | PDOC H&P ---
History of Present Illness Admission Date/PCP: DENIS GUEVARA MD History of Present Illness: GIA TINOCO is a 65 year old male with past medical history significant for HTN, HLD, T2DM, COPD, defibrillator for unknown reason who presents ED after 1 week of progressive dizziness/lightheadedness/generalized weakness and possible presyncope versus syncope. Son brought patient into ED on 09/19 for the same problems as well as progressive memory loss and confusion for the past 2 months. He was given IV fluids and discharged home. At that time, he was noted to have positive UDS for marijuana and cocaine however the son states he searched the patient's home and found no paraphernalia to suggest the patient has a drug problem and he also states the patient has had limited mobility and transportation for the past few weeks. Patient does admit to drinking 3x 24 ounce beers per day for many months. After initial ED visit, patient followed up with his PCP who reportedly stated he did not want to perform a work-up for dementia and rather prefer the patient stop drinking completely and he gave the patient a prescription for lorazepam as needed. This admission, labs and CT head did not show any acute findings. Of note, patient and his son also describe patient being unable to urinate without forcefully pushing urine out of his bladder. They deny any history of BPH and have never seen a urologist. Patient admitted for observation for further work-up of syncope/presyncope as well as altered mental status. Past Medical History Cardiac Medical History: Reports: Myocardial Infarction, Hyperlipidema, Hypertension Pulmonary Medical History: Reports: Chronic Obstructive Pulmonary Disease (COPD) Endocrine Medical History: Reports: Diabetes Mellitus Type 2 Psychiatric Medical History: Reports: Alcohol Dependency Denies: Depression Past Surgical History Past Surgical History: Reports: Appendectomy, Orthopedic Surgery, Other - Defibrillator Social History Information Source: Patient, Relative, Emergency Med Personnel Lives with: Alone Smoking Status: Current Some Day Smoker Frequency of Alcohol Use: Occasional Hx Recreational Drug Use: No Drugs: None - Advance Directive Resuscitation Status: Full Code Surrogate healthcare decision maker:: Admitting diagnosis: Acute metabolic encephalopathy All aspects of code status discussed with patient/POA including cardioversion, chest compressions, and intubation and the patient/POA indicated they wish to be full code MPOA is designated as: Erwin Reyna Time spent: Greater than 16 minutes Family History Family History: None Parental Family History Reviewed: Yes Children Family History Reviewed: Yes Sibling(s) Family History Reviewed.: Yes Medication/Allergy Home Medications: Ergocalciferol (Vitamin D2) [Drisdol 50,000 unit (1.25MG) Capsule] 50,000 unit PO MO 02/02/19 Metformin HCl [Glucophage XR 500 mg Tablet] 1,000 mg PO BID 02/02/19 Naproxen [Naprosyn] 500 mg PO BIDP PRN 02/02/19 Rosuvastatin Calcium [Crestor 20 mg Tablet] 20 mg PO QHS 02/02/19 Umeclidinium Brm/Vilanterol Tr [Anoro Ellipta 62.5-25 Mcg INH] 1 puff IH DAILY 02/02/19 Carvedilol [Coreg 3.125 mg Tablet] 3.125 mg PO Q12 #60 tablet 02/03/19 Lisinopril [Prinivil 2.5 mg Tablet] 2.5 mg PO DAILY #30 tablet 02/03/19 Amox Tr/Potassium Clavulanate [Augmentin 875-125 Tablet] 1 tab PO BID 7 Days #14 tablet 03/21/19 Allergies/Adverse Reactions: Penicillins Allergy (Verified 10/02/20 17:41) Review of Systems All systems: reviewed and no additional remarkable complaints except as stated - Per HPI otherwise negative Physical Exam Vital Signs: Temp Pulse Resp BP Pulse Ox 97.6 F 70 18 150/83 H 98 10/02/20 15:33 10/03/20 03:38 10/02/20 21:15 10/03/20 03:38 10/02/20 21:15 Intake & Output 10/01/20 10/02/20 10/03/20 06:59 06:59 06:59 Intake Total 1000 Balance 1000 Weight 75.75 kg Exam: General appearance: PRESENT: no acute distress, well-developed, well-nourished, -[place] male Head exam: PRESENT: atraumatic, normocephalic Eye exam: PRESENT: conjunctiva pink. ABSENT: scleral icterus Mouth exam: PRESENT: moist Respiratory exam: PRESENT: clear to auscultation bonifacio. ABSENT: rales, rhonchi, wheezes Cardiovascular exam: PRESENT: RRR. ABSENT: diastolic murmur, rubs, systolic murmur; defibrillator GI/Abdominal exam: PRESENT: normal bowel sounds, soft. ABSENT: distended, guarding, mass, organolmegaly, rebound, tenderness Neurological exam: PRESENT: alert, awake, oriented to person, not oriented to place/time/situation, no gross focal neurologic findings Psychiatric exam: PRESENT: appropriate affect, normal mood Skin exam: PRESENT: dry, intact, warm Results Laboratory Results: 10/02/20 19:08 10/02/20 19:08 10/02/20 10/02/20 19:08 19:08 WBC 6.4 RBC 3.84 L Hgb 12.1 L Hct 36.3 L MCV 95 MCH 31.7 MCHC 33.5 RDW 13.9 Plt Count 221 Seg Neutrophils % 59.0 Sodium 136.3 L Potassium 4.9 Chloride 101 Carbon Dioxide 29 Anion Gap 6 BUN 14 Creatinine 0.92 Est GFR ( Amer) > 60 Glucose 120 H Calcium 9.6 Total Bilirubin 0.6 AST 33 Alkaline Phosphatase 92 Total Protein 7.2 Albumin 3.6 10/03/20 03:57 Troponin I < 0.012 Impressions: Cervical Spine CT 10/02/20 17:51 IMPRESSION: Degenerative disc disease and spondylosis. No acute findings. Head CT 10/02/20 17:51 IMPRESSION: Involutional changes with chronic microvascular ischemia. No acute intracranial imaging findings. EVIDENCE OF ACUTE STROKE: NO. 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 alcohol related dementia from prolonged abuse Possible Alzheimer's dementia Possible urinary retention; get UA with reflex culture (2) Pre-syncope Is this a current diagnosis for this admission?: Yes Plan: Echocardiogram, carotid PVL PT Interrogate defibrillator Cardiology consult: Patient and son have no idea why the patient has a defibrillator in place (3) Falls Is this a current diagnosis for this admission?: Yes Plan: As above Vitamin deficiency versus CVA versus carotid stenosis versus urinary retention/UTI (4) AICD (automatic cardioverter/defibrillator) present Is this a current diagnosis for this admission?: Yes (5) Alcohol dependence Qualifiers: Substance use status: in remission Qualified Code(s): F10.21 - Alcohol dependence, in remission Is this a current diagnosis for this admission?: Yes Plan: Previously was drinking 24 ounce beer 3 times per day for many months Quit drinking 1 week prior to admission (6) COPD (chronic obstructive pulmonary disease) Qualifiers: Emphysema type: unspecified Is this a current diagnosis for this admission?: Yes Plan: Home inhalers (7) Hyperlipidemia Is this a current diagnosis for this admission?: Yes (8) Hypertension Qualifiers: Hypertension type: essential hypertension Qualified Code(s): I10 - Essential (primary) hypertension Is this a current diagnosis for this admission?: Yes Plan: Controlled (9) Type 2 diabetes mellitus Qualifiers: Diabetes mellitus long term care administrator insulin use: without long term care administrator use Diabetes mellitus complication status: without complication Qualified Code(s): E11.9 - Type 2 diabetes mellitus without complications Is this a current diagnosis for this admission?: Yes Plan: T2DM -accucheks, sliding scale insulin -long acting insulin indicated for HgA1C of 10 or greater -diet counseling -outpt FU with PCP - Time Time Spent with patient: 35 or more minutes Medications reviewed and adjusted accordingly: Yes Anticipated Discharge Disposition: Home, Self Care Anticipated Discharge Timeframe: within 48 hours
[2020-10-03 07:56] LABS: ANION GAP 5 (5-19); BLOOD UREA NITROGEN 13 mg/dL (7-20); CALCIUM 8.5 mg/dL (8.4-10.2); CARBON DIOXIDE 26 mmol/L (22-30); CHLORIDE 105 mmol/L (98-107); GLUCOSE 98 mg/dL (75-110); POTASSIUM 4.3 mmol/L (3.6-5.0)
[2020-10-03 08:15] LABS: FREE T4 (FREE THYROXINE) 1.59 ng/dL (0.78-2.19)
[2020-10-03 08:28] LABS: THYROID STIMULATING HORMONE 1.38 uIU/mL (0.47-4.68)
[2020-10-03] MEDS: INSULIN LISPRO 100 UNIT/ML 3 ML VIAL SUBCUT SCH ×4 (08:48→21:04)
[2020-10-03] MEDS: ENOXAPARIN SODIUM INJ 40 MG/0.4 ML DISP.SYRIN SUBCUT SCH (09:32)
[2020-10-03] MEDS: DOCUSATE SODIUM 100 MG CAPSULE PO SCH (09:33)
[2020-10-03] MEDS: CARVEDILOL 3.125 MG TABLET PO SCH ×2 (09:33→21:10)
[2020-10-03] MEDS ORDERED: (PENDING PHARMACY ID) (Umeclidinium Brm/Vilanterol Tr [Anoro Ellipta 62.5-25 Mcg Inh] 1 EA IH SCH (10:00)
[2020-10-03 11:24] LABS: APPEARANCE,URINE CLEAR; BILIRUBIN,URINE NEGATIVE (NEGATIVE); COLOR,URINE YELLOW; GLUCOSE, URINE NEGATIVE (NEGATIVE); KETONES,URINE 20 mg/dL (NEGATIVE); PROTEIN,URINE NEGATIVE (NEGATIVE)
[2020-10-03 11:40] LABS: URINE BARBITURATES SCREEN NEGATIVE; URINE BENZODIAZEPINES SCREEN NEGATIVE; URINE COCAINE SCREEN NEGATIVE; URINE MARIJUANA (THC) SCREEN NEGATIVE; URINE METHADONE SCREEN NEGATIVE; URINE PHENCYCLIDINE SCREEN NEGATIVE
[2020-10-03 11:45] LABS: URINE AMPHETAMINES SCREEN NEGATIVE
--- NOTE | 2020-10-03 14:10 | RADIOLOGY REPORT (SQ) ---
EXAM DESCRIPTION: CAROTID DOPPLER IMAGES COMPLETED DATE/TIME: 10/03/2020 2:01 pm REASON FOR STUDY: vascular disease COMPARISON: None. TECHNIQUE: Grayscale ultrasound, Doppler velocity and spectra, and color Doppler images acquired of the extra-cranial carotid and vertebral arteries. Images stored on PACS. LIMITATIONS: None. FINDINGS: RIGHT CAROTID CCA Velocities: Within normal limits. ICA Velocities Peak systolic 0.6 m/s. End diastolic 0.18 m/s. Proximal ICA/CCA peak systolic ratio 1.1. Spectra normal. No significant plaque. LEFT CAROTID CCA Velocities: Within normal limits. ICA Velocities Peak systolic 0.74 m/s. End diastolic 0.28 m/s. Proximal ICA/CCA peak systolic ratio 1.1. Spectra normal. No significant plaque. VERTEBRAL ARTERIES: Antegrade flow. Normal waveforms. SUBCLAVIAN ARTERIES: No finding. OTHER: No other significant finding. IMPRESSION: NO HEMODYNAMICALLY SIGNIFICANT STENOSIS. COMMENT: Quality ID #[id number]: Velocity criteria are extrapolated from the diameter data as defined by t he Society of Radiologists in Ultrasound Consensus Conference. Radiology 2003: 229; 340-346. TECHNICAL DOCUMENTATION: JOB ID: [id number] 2010 [employer]- All Rights Reserved Reading location - IP/workstation name: [email or web address]
--- NOTE | 2020-10-03 18:22 | Progress Note ---
Provider Note Provider Note: Patient seen on morning rounds. He is sitting up at side of his bed eating son is present at the time evaluation. Patient's son confirms progressively decreasing memory and cognitive ability and patient since Thanksgiving; though patient denies any change in his memory and is rather adamant that he would like to go home. additionally notes an increase in symptoms of falls specifically when patient ambulates from his bed to the bathroom, states it [employer] when ambulating from bed to the bathroom without rubs or any other fall risks. Patient did follow-up with primary care regarding this and primary care reportedly advised patient to stop drinking and prescribed Ativan. Patient admits to consuming at least three 24oz beers nightly. Patient currently living with his son who is currently working from home and thus very present. On initial evaluation patient was noted to have urinary retention, though both patient and nurse confirmed patient has urinated multiple times since admission. Additionally patient is noted to have a pacemaker/defibrillator. Patient son tells me that this was for an irregular heart rate and it was placed greater than 10 years ago. Patient routinely follows up with [employer] who placed it via televisit and just last year they gave him the option of keeping it or removing it patient decided to keep it at that time. Patient is typically treated at [facility]. Receives care through the [place]. A goals of care conversation was held between myself, the patient and the patient's son. Please see ACP note. Labs and imaging reviewed and are relatively unremarkable overall. Hemoglobin 12.1. Sodium 136.4. Ketones noted on UA. Vital signs are stable. He is 100% on room air. Head CT, cervical CT, carotid ultrasound all without acute findings. Echo is pending. Physical therapy evaluation completed. Recommend skilled PT services following discharge from the acute setting such as home health additionally encourage supervision with OOB mobility and assistance with stairs. In need of a walker at home. Additionally believe that patient will benefit from home health OT, medication management, as well as a RN/aide. Discharge planning is currently working on arranging home health through the [place]. As long as patient remains stable we will get him home tomorrow with home health. Additionally I will try to receive cardiology notes from [place] if possible.
--- NOTE | 2020-10-03 18:26 | ADVANCED CARE ---
Attendance: Conversation was held at bedside between the patient myself and his son Resuscitation Status: Full Code Discussion: Discussion was focused on explaining the difference between a full code and DNR to the patient and his son. At this time the patient still acts as his own medical power of traffic law attorney. Patient son states that they have not discussed this in the past. Patient does have a defibrillator in at this time, though it is unclear if this is still currently working. I have asked the nurse to interrogate it. In the time being patient tells me that he does not know what he would like his CODE STATUS to be and thus will remain a full code Care Planning Goals: Given patient's decline in cognitive ability and notable dementia discussed with both the patient and patient's son the importance of patient establishing a medical power of traffic law attorney and having discussions regarding his CODE STATUS and his once moving forward. Both the patient and the patient's son were understanding and agreeable to this. Document(s) Completed: none Time Spent: 30
--- NOTE | 2020-10-03 18:54 | XCELERA REPORT ---
[address] [address] Transthoracic Echocardiogram Report Name: GIA TINOCO Age: 65 yrs Gender: Male : 1955 Patient Status: Inpatient Patient Location: [address] [place] [address] Study Date: 10/03/2020 11:23 AM Height: 68 in Weight: 167 lb BSA: 1.9 m2 Procedure: A complete two-dimensional transthoracic echocardiogram was performed (2D, M-mode, spectral and color flow Doppler). The study was technically difficult with many images being suboptimal in quality. Reason For Study: pre-sycnope/syncope Ordering Physician: ALAINA STEELE Performed By: Fide June Interpretation Summary LEFT VENTRICLE: LV Systolic function: LVEF is felt to be within normal limits. Best estimate is approximately LVEF is 60 to 65%. LV Diastolic Function: Grade II diastolic dysfunction noted. Wall motion: not all wall segment were well visualised. Regional wall motion cannot be accurately commented upon. Left ventricular chamber size: is within normal limit. Left ventricular wall thickness: is increased indicative of Mild LVH. RIGHT VENTRICLE: RV systolic function: cannot be assessed but could be mildly depressed. Right Ventricle Size: mildly dilated LEFT ATRIUM size: normal size RIGHT ATRIUM size: mildly dilated. INTER ATRIAL SEPTUM: No definite atrial septal defect noted however a small PFO could be missed. AORTIC ROOT: seems to be within normal limits. ASCENDING AORTA: is not well visualized. INFERIOR VENA CAVA: was not well visualized. VALVES: MITRAL VALVE: Leaflets are mildly thickened. Mobility seems to be within normal limits. Mitral Regurgitation: Trace mitral regurgitation is noted. Mitral Stenosis: No mitral stenosis noted. Mitral valve prolapse: none noted. AORTIC VALVE: all leaflets not well visualised but with mild thickening and adequate excursion. Aortic stenosis: No aortic stenosis noted. Aortic regurgitation: No aortic incompetence noted. TRICUSPID VALVE: mobility and structures within normal limit. Tricuspid stenosis: no tricuspid stenosis noted. Tricuspid regurgitation: trace to mild tricuspid regurgitation noted. Estimated RVS : best estimated at approximately 35 to summer three consistent with mild pulmonary hypertension. PULMONARY VALVE: was not well visualized but no significant abnormalities suspected. Pulmonary stenosis: no pulmonary stenosis noted. Pulmonary regurgitation: no significant pulmonary regurgitation noted. MASSES AND THROMBUS: No definite intracardiac thrombus or masses are noted. PERICARDIUM: minimal pericardial effusion was noted. INCIDENTAL FINDINGS: pacemaker/defibrillator lead noted traversing the right ventricle. IMPRESSION: 1. Normal LVEF. 2. Mild LVH noted. 3. Grade II Diastolic Dysfunction noted. 4. No significant valvular stenosis or regurgitation noted. 5. Right atrium and right ventricle are mildly dilated. Right ventricle of function possibly depressed. 6. Incidental note of pacemaker/defibrillator lead noted traversing the right ventricle. 7. Echocardiogram was technically difficult therefore clinical correlation is requested. MMode/2D Measurements & Calculations RVDd: 4.0 cm LVIDd: 4.5 cm FS: 37.2 % Ao root diam: 3.2 cm IVSd: 0.96 cm LVIDs: 2.8 cm EDV(Teich): 90.2 ml Ao root area: 8.0 cm2 LVPWd: 0.95 cm ESV(Teich): 29.5 ml LA dimension: 3.5 cm EF(Teich): 67.3 % Doppler Measurements & Calculations MV E max kristopher: MV P1/2t max kristopher: Ao V2 max: LV V1 max P.1 cm/sec 53.1 cm/sec 92.9 cm/sec 2.4 mmHg MV A max kristopher: MV P1/2t: 65.0 msec Ao max P.5 mmHg LV V1 max: 65.8 cm/sec MVA(P1/2t): 3.4 cm2 78.2 cm/sec MV E/A: 0.79 MV dec slope: 239.5 cm/sec2 MV dec time: 0.24 sec PA V2 max: TR max kristopher: MV P1/2t-pr_phl: 67.1 cm/sec 264.7 cm/sec 65.0 msec PA max P.8 mmHgTR max P.0 mmHg : ALAINA STEELE Shyamal
[2020-10-03] MEDS ORDERED: ATORVASTATIN CALCIUM 40 MG TABLET PO SCH (22:00)
[2020-10-03] MEDS ORDERED: (PENDING PHARMACY ID) (Rosuvastatin Calcium [Crestor 20 Mg Tablet] 20 MG Tablet) PO SCH (22:00)
--- NOTE | 2020-10-03 23:39 | EKG REPORT ---
SEVERITY:- OTHERWISE NORMAL ECG - SINUS RHYTHM LEFT AXIS DEVIATION : Confirmed by: Shima Ellison 03-Oct-2020 23:38:24
[2020-10-04 05:22] LABS: ABSOLUTE EOSINOPHILS # (AUTO) 0.1 10^3/uL (0.0-0.6); ABSOLUTE LYMPHOCYTES (AUTO) 1.3 10^3/uL (0.5-4.7); ABSOLUTE MONOCYTES (AUTO) 0.6 10^3/uL (0.1-1.4); ABSOLUTE NEUT (AUTO) 2.4 10^3/uL (1.7-8.2); BASOPHILS % (AUTO) 0.8 % (0-2); EOSINOPHILS % (AUTO) 2.8 % (0-6); HEMATOCRIT 31.7 % (37.9-51.0); LYMPHOCYTES % (AUTO) 29.2 % (13-45); MEAN CORPUSCULAR HEMOGLOBIN 32.6 pg (27.0-33.4); MEAN CORPUSCULAR HGB CONC 34.8 g/dL (32.0-36.0); MEAN CORPUSCULAR VOLUME 94 fl (80-97); MONOCYTES % (AUTO) 12.9 % (3-13); PLATELET COUNT 174 10^3/uL (150-450); RED BLOOD COUNT 3.38 10^6/uL (4.35-5.55); RED CELL DISTRIBUTION WIDTH 13.7 % (11.5-14.0); SEGMENTED NEUTROPHILS % (AUTO) 54.3 % (42-78); TOTAL CELLS COUNTED % (AUTO) 100 %; WHITE BLOOD COUNT 4.4 10^3/uL (4.0-10.5)
[2020-10-04] MEDS: INSULIN LISPRO 100 UNIT/ML 3 ML VIAL SUBCUT SCH ×2 (07:45→12:34)
[2020-10-04 09:41] VITALS: BP 128/77
[2020-10-04] MEDS: ENOXAPARIN SODIUM INJ 40 MG/0.4 ML DISP.SYRIN SUBCUT SCH (09:51)
[2020-10-04] MEDS: CARVEDILOL 3.125 MG TABLET PO SCH (09:51)
[2020-10-04] MEDS: DOCUSATE SODIUM 100 MG CAPSULE PO SCH (09:52)
--- NOTE | 2020-10-04 18:57 | PDOC DISCHARGE SUMMARY ---
Impression - Admit/DC Date/PCP Admission Date/Primary Care Provider: 10/03/20 06:17 DENIS GUEVARA MD Discharge Date: 10/04/20 - Additional Information Resuscitation Status: Full Code Discharge Diet: Cardiac, Diabetic Discharge Activity: Activity As Tolerated, Supervised Activity Referrals: DENIS GUEVARA MD [Primary Care Provider] - 10/08/20 7:00 am () Prescriptions: Carvedilol [Coreg 3.125 mg Tablet] 3.125 mg PO Q12 #30 tablet Home Medications: Umeclidinium Brm/Vilanterol Tr [Anoro Ellipta 62.5-25 Mcg INH] 1 puff IH QAM 02/02/19 Fenofibrate Nanocrystallized [Tricor 145 mg Tablet] 145 mg PO QPM 10/03/20 Carvedilol [Coreg 3.125 mg Tablet] 3.125 mg PO Q12 #30 tablet 10/04/20 History of Present Illiness History of Present Illness: As per admitting provider "GIA TINOCO is a 65 year old male with past medical history significant for HTN, HLD, T2DM, COPD, defibrillator for unknown reason who presents ED after 1 week of progressive dizziness/lightheadedness/generalized weakness and possible presyncope versus syncope. Son brought patient into ED on 09/19 for the same problems as well as progressive memory loss and confusion for the past 2 months. He was given IV fluids and discharged home. At that time, he was noted to have positive UDS for marijuana and cocaine however the son states he searched the patient's home and found no paraphernalia to suggest the patient has a drug problem and he also states the patient has had limited mobility and transportation for the past few weeks. Patient does admit to drinking 3x 24 ounce beers per day for many months. After initial ED visit, patient followed up with his PCP who reportedly stated he did not want to perform a work-up for dementia and rather prefer the patient stop drinking completely and he gave the patient a prescription for lorazepam as needed. This admission, labs and CT head did not show any acute findings. Of note, patient and his son also describe patient being unable to urinate without forcefully pushing urine out of his bladder. They deny any history of BPH and have never seen a urologist. Patient admitted for observation for further work-up of syncope/presyncope as well as altered mental status." Hospital Course Hospital Course: Acute metabolic encephalopathy / Frequent falls Unclear etiology though likely just progressive dementia, additionally possible secondary to prolonged EtOh abuse. His sister does have hx Alzheimer's dementia. Labs WNL. Head CT notable for chronic findings, but nothing acute. Cervical spine CT DDD, without acute findings. Carotid doppler without stenosis. Echo normal LVEF, grade II diastolic dysfunction. 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 Evaluated by PT, recommends home health. Patient son is currently living with him and is able ot provide 24 hour support. Additional services from home health include RN, medication management and PT. Can consider an aid in future if needed. Defibrillator was interrogated, placed >10 years ago. Still currently working, with lifespan suspected to be <1 graham. Need to follow up with his cardiolgist within 1-2 week discharge from hospital for further evaluation/discussion of need. Alcohol dependence Previously was drinking 24 ounce beer 3 times per day for many months Quit drinking 1 week prior to admission Educated on importance of alcohol cessation. Understanding and agreeable. Son plans to not allow alcohol in house. Physical Exam Vital Signs: Temp Pulse Resp BP Pulse Ox 98.2 F 72 22 H 128/77 H 100 10/04/20 11:32 10/04/20 11:32 10/04/20 11:32 10/04/20 11:32 10/04/20 11:32 Intake & Output 10/03/20 10/04/20 10/05/20 06:59 06:59 06:59 Intake Total 1000 1960 Output Total 900 Balance 1000 1060 Weight 75.75 kg 67.9 kg Additional comments: General appearance: PRESENT: no acute distress, well-developed, well-nourished, -[place]amb[place]ian male Head exam: PRESENT: atraumatic, normocephalic Eye exam: PRESENT: conjunctiva pink. ABSENT: scleral icterus Mouth exam: PRESENT: moist Respiratory exam: PRESENT: clear to auscultation bonifacio. ABSENT: rales, rhonchi, wheezes Cardiovascular exam: PRESENT: RRR. ABSENT: diastolic murmur, rubs, systolic murmur; defibrillator GI/Abdominal exam: PRESENT: normal bowel sounds, soft. ABSENT: distended, guarding, mass, organolmegaly, rebound, tenderness Neurological exam: PRESENT: alert, awake, oriented to person, not oriented to place/time/situation, no gross focal neurologic findings Psychiatric exam: PRESENT: appropriate affect, normal mood Skin exam: PRESENT: dry, intact, warm Results Laboratory Results: WBC 4.4 10^3/uL (4.0-10.5) 10/04/20 05:00 RBC 3.38 10^6/uL (4.35-5.55) L 10/04/20 05:00 Hgb 11.0 g/dL (13.5-17.0) L 10/04/20 05:00 Hct 31.7 % (37.9-51.0) L 10/04/20 05:00 MCV 94 fl (80-97) 10/04/20 05:00 MCH 32.6 pg (27.0-33.4) 10/04/20 05:00 MCHC 34.8 g/dL (32.0-36.0) 10/04/20 05:00 RDW 13.7 % (11.5-14.0) 10/04/20 05:00 Plt Count 174 10^3/uL (150-450) 10/04/20 05:00 Lymph % (Auto) 29.2 % (13-45) 10/04/20 05:00 Phelps % (Auto) 12.9 % (3-13) 10/04/20 05:00 Eos % (Auto) 2.8 % (0-6) 10/04/20 05:00 Baso % (Auto) 0.8 % (0-2) 10/04/20 05:00 Absolute Neuts (auto) 2.4 10^3/uL (1.7-8.2) 10/04/20 05:00 Absolute Lymphs (auto) 1.3 10^3/uL (0.5-4.7) 10/04/20 05:00 Absolute Monos (auto) 0.6 10^3/uL (0.1-1.4) 10/04/20 05:00 Absolute Eos (auto) 0.1 10^3/uL (0.0-0.6) 10/04/20 05:00 Absolute Basos (auto) 0.0 10^3/uL (0.0-0.2) 10/04/20 05:00 Seg Neutrophils % 54.3 % (42-78) 10/04/20 05:00 Sodium 136.4 mmol/L (137-145) L 10/03/20 07:20 Potassium 4.3 mmol/L (3.6-5.0) 10/03/20 07:20 Chloride 105 mmol/L (98-107) 10/03/20 07:20 Carbon Dioxide 26 mmol/L (22-30) 10/03/20 07:20 Anion Gap 5 (5-19) 10/03/20 07:20 BUN 13 mg/dL (7-20) 10/03/20 07:20 Creatinine 0.80 mg/dL (0.52-1.25) 10/03/20 07:20 Est GFR ( Amer) > 60 (>60) 10/03/20 07:20 Est GFR (MDRD) Non-Af > 60 (>60) 10/03/20 07:20 Glucose 98 mg/dL (75-110) 10/03/20 07:20 POC Glucose 100 mg/dL (70-110) 10/04/20 06:24 Hemoglobin A1c % 5.8 % (4.7-6.0) 10/04/20 05:00 Calcium 8.5 mg/dL (8.4-10.2) 10/03/20 07:20 Phosphorus 4.0 mg/dL (2.5-4.5) 10/04/20 05:00 Magnesium 1.7 mg/dL (1.6-2.3) 10/04/20 05:00 Total Bilirubin 0.6 mg/dL (0.2-1.3) 10/02/20 19:08 Direct Bilirubin 0.2 mg/dL (0.0-0.4) 10/02/20 19:08 Neonat Total Bilirubin Not Reportable 10/02/20 19:08 Neonat Direct Bilirubin Not Reportable 10/02/20 19:08 Neonat Indirect Bili Not Reportable 10/02/20 19:08 AST 33 U/L (17-59) 10/02/20 19:08 ALT 14 U/L (<50) 10/02/20 19:08 Alkaline Phosphatase 92 U/L (38-126) 10/02/20 19:08 Ammonia < 8.7 umol/L (9-33) L 10/03/20 07:20 Troponin I < 0.012 ng/mL 10/03/20 03:57 Total Protein 7.2 g/dL (6.3-8.2) 10/02/20 19:08 Albumin 3.6 g/dL (3.5-5.0) 10/02/20 19:08 Vitamin B12 733.0 pg/mL (239-931) 10/03/20 07:20 TSH 1.38 uIU/mL (0.47-4.68) 10/03/20 07:20 Free T4 1.59 ng/dL (0.78-2.19) 10/03/20 07:20 Urine Color YELLOW 10/03/20 10:57 Urine Appearance CLEAR 10/03/20 10:57 Urine pH 5.0 (5.0-9.0) 10/03/20 10:57 Ur Specific [place] 1.020 10/03/20 10:57 Urine Protein NEGATIVE mg/dL (NEGATIVE) 10/03/20 10:57 Urine Glucose (UA) NEGATIVE mg/dL (NEGATIVE) 10/03/20 10:57 Urine Ketones 20 mg/dL (NEGATIVE) H 10/03/20 10:57 Urine Blood NEGATIVE (NEGATIVE) 10/03/20 10:57 Urine Nitrite (Reflex) NEGATIVE (NEGATIVE) 10/03/20 10:57 Urine Bilirubin NEGATIVE (NEGATIVE) 10/03/20 10:57 Urine Urobilinogen 2.0 mg/dL (<2.0) H 10/03/20 10:57 Leukocyte Esterase Rfl NEGATIVE (NEGATIVE) 10/03/20 10:57 Urine RBC (Auto) 1 /HPF 10/03/20 10:57 U Hyaline Cast (Auto) 2 /LPF 10/03/20 10:57 Urine WBC (Reflex) 1 /HPF 10/03/20 10:57 Urine Mucus (Auto) OCC /LPF 10/03/20 10:57 Urine Ascorbic Acid NEGATIVE (NEGATIVE) 10/03/20 10:57 Salicylates < 1.0 mg/dL (2.0-20.0) L 10/02/20 19:08 Urine Opiates Screen NEGATIVE 10/03/20 10:57 Urine Methadone Screen NEGATIVE 10/03/20 10:57 Acetaminophen < 10 ug/mL (10-30) L 10/02/20 19:08 Ur Barbiturates Screen NEGATIVE 10/03/20 10:57 Ur Phencyclidine Scrn NEGATIVE 10/03/20 10:57 Ur Amphetamines Screen NEGATIVE 10/03/20 10:57 U Benzodiazepines Scrn NEGATIVE 10/03/20 10:57 Urine Cocaine Screen NEGATIVE 10/03/20 10:57 U Marijuana (THC) Screen NEGATIVE 10/03/20 10:57 Serum Alcohol < 10 mg/dL (NONE DETECTED) 10/02/20 19:08 10/03/20 03:57 Troponin I < 0.012 Impressions: Cervical Spine CT 10/02/20 17:51 IMPRESSION: Degenerative disc disease and spondylosis. No acute findings. Head CT 10/02/20 17:51 IMPRESSION: Involutional changes with chronic microvascular ischemia. No acute intracranial imaging findings. EVIDENCE OF ACUTE STROKE: NO. Carotid Doppler Study 10/03/20 06:10 IMPRESSION: NO HEMODYNAMICALLY SIGNIFICANT STENOSIS. Plan Plan of Treatment: 1. Dementia - over the past several months you have had a notable decrease in your memory. We completed a number of studies including carotid ultrasound, CT of your brain and MRI of your brain all of which were unremarkable. Your change in memory is likely secondary to dementia. Dementia is a progressive disease that affects everyone differently. - Please avoid drinking alcohol. - Please follow-up with your primary care provider for further dementia work-up. - I would recommend against the use of Ativan as this can actually cause an increase in altered mental status. - We also looked at your vitamin levels all of which were unremarkable. 2. Defibrillator - you have a defibrillator/pacemaker in place. We checked this and and is currently working. Please follow-up with your java support engineer regarding defibrillator, as the projected lifespan of the defibrillator was found to be less than 1 year. - We did get an echo (or an ultrasound of your heart) which showed that your h eart function was normal. - It is very important that you follow-up with your java support engineer to discuss defibrillator. 3. Frequent falls -your son noted that you have been falling specifically when walking from your bed to the bathroom. - We have organized home health for you. This will be a physical therapist, occupational therapist, and registered nurse who will come to your house and help work on strengthening, completing active daily living, and medication management. Additionally they will provide equipment to help with safely. - It is important that you have 24-hour support at your house with you at this time, given your increased risk of falls and memory loss. - [facility] that you can investigate if you find that you need more help at home moving forward. - Again, please avoid consuming alcohol. 4. Urinary retention - when he first came in and you son noted that you were not peeing as often as usual. Your urine was without infection and you were peeing normal while at the hospital. - Dehydration or lack of urine output can cause an increase in dementia-like symptoms I encourage you to drink fluids regularly throughout the day. If you are not urinating please please seek medical attention. 5. Hypertension -I have sent a prescription for carvedilol refill to your [facility] pharmacy. Time Spent: Greater than 30 Minutes Stroke Is this a Stroke Patient?: No Acute Heart Failure Is this a Heart Failure Patient?: No
== END 2020-10-04 12:37 | disposition home health service (06) ==
LOC: ER 15:26 → EH 10-03 06:17 → 4N 10-03 08:02
PROVIDERS: ADMIT Internal Medicine; ATTEND Physician Assistant
DX: F03.90 Unspecified dementia, unspecified severity, without behavioral disturbance, psychotic disturbance, mood disturbance, and anxiety (principal); R33.9 Retention of urine, unspecified; I10 Essential (primary) hypertension; R29.6 Repeated falls; R53.1 Weakness; R42 Dizziness and giddiness; I25.2 Old myocardial infarction; Z91.81 History of falling; Z45.02 Encounter for adjustment and management of automatic implantable cardiac defibrillator; E78.5 Hyperlipidemia, unspecified; J44.9 Chronic obstructive pulmonary disease, unspecified; E11.9 Type 2 diabetes mellitus without complications; R55 Syncope and collapse; Z74.09 Other reduced mobility; F10.21 Alcohol dependence, in remission; M50.322 Other cervical disc degeneration at C5-C6 level; F17.200 Nicotine dependence, unspecified, uncomplicated; Z82.0 Family history of epilepsy and other diseases of the nervous system; Z90.49 Acquired absence of other specified parts of digestive tract; Z79.84 Long term (current) use of oral hypoglycemic drugs; Z79.899 Other long term (current) drug therapy
CPT/HCPCS: 93005; 99285; 96360; 36415 ×3; 84439; 84425; 82962 ×2; 80307 ×4; 82140; 82607; 83735; 84100; 84443; 85025 ×2; 80048; 80053; 81001; 84484; 83036 ×2; 93306; 93880; 70450; 72125; 93010; 97116; 97162; 93295; G0378 ×3; J1650 ×2; J7030; J7120